=== PATIENT | female | born 2000 | race Caucasian/White ===

== ENCOUNTER 2018-09-12 12:09 | Emergency (ER) | payer OTHER ==
[~2018-09-12] VITALS: Ht 160 cm; Wt 78.5 kg
[2018-09-12] MEDS ORDERED: PREDNISONE50 MG PO (13:02)
[2018-09-12] MEDS ORDERED: VENTOLIN HFA 1818 GM INH (13:02)
[2018-09-12 13:14] VITALS: BP 120/79
== END 2018-09-12 13:14 | disposition home or self-care (01) ==
LOC: M.ERS 12:09
DX: J45.901 Unspecified asthma with (acute) exacerbation (principal); F17.200 Nicotine dependence, unspecified, uncomplicated